=== PATIENT | female | born 1950 | race Caucasian/White ===

== ENCOUNTER 2016-05-29 10:18 | Inpatient (IN) | payer MEDICARE, OTHER ==
[~2016-05-29 10:18] MED LIST: ACCUPRIL40 M1 PO; ACCUPRIL40 MG; ARIPIPRAZOLE5 MG PO; ARTIFICIAL TEAR1510 EACH EYE; ASPIRIN81 M1 PO; ATORVASTATIN CA80 M1 PO; CELEXA20 M2 PO; CELEXA40 M2 PO; CERTAVITE SR-A1 EACH PO; CLOPIDOGREL75 M1 PO; COLACE100 M1 PO; COUMADIN1 M1 PO; COUMADIN5 M2 PO; DIAZEPAM10 M2 PO; DULOXETINE HCL60 M1 PO; GENTEAL EACH EYE; HUMALOG100 U/ML; HUMALOG100 UNIT/2 SQ; HUMALOG100 UNITS/ SC; HUMULIN 70/30 V10 ML; HYDROCHLOROTHIA25 M1 PO; IRON325 M3 PO; ISOSORBIDE MONO30 M4 PO; KEFLEX500 MG PO; LANTUS100 UNITS/ SC; LIPITOR40 M1 PO; LIPITOR80 M1 PO; LISINOPRIL2.5 M1 PO; LOPRESSOR50 M1 PO; METHIMAZOLE5 M1 PO; METOPROLOL SUCC25 M1 PO; METOPROLOL TART25 M1 PO; NORCO 5-325 TA1 EACH PO; NORVASC10 M2 PO; NORVASC5 MG; OMEPRAZOLE20 M3 PO; PAIN RELIEVER500 M6 PO; PLAVIX75 M1 PO; PRAVACHOL40 M1 PO; PRAVACHOL40 MG; RANEXA500 M1 PO; REQUIP2 M1 PO; REQUIP2 MG; SENNA8.6 M2 PO; SPIRIVA18 MC1 IH; SUCRALFATE1 GM/10 ML PO; SYSTANE ULTRA 010 M1 EACH EYE; TAPAZOLE5 M1 PO; ULTRAM50 M1 PO; VOTRIENT200 M1 PO
[2016-05-29 10:55] LABS: BASO % 0.4 % (0-2); EOS % 0.4 % (0-7); HCT-HEMATOCRIT 40.5 % (34.0-49.0); HGB-HEMOGLOBIN 13.2 gm/dl (12.0-15.5); LYMPH % 9.2 % (20-45); LYMPH ABSOLUTE COUNT 0.8 tho/cmm (0.8-4.5); MCHC MEAN CORPUSCULAR HGB CONC 32.6 % (32.0-36.0); MCV (MEAN CELL VOLUME) 98.3 fl (82.0-96.0); MEAN PLATELET VOLUME 10.1 cmc (9.4-12.4); MONO % 9.8 % (0-12); MONOCYTE ABSOLUTE COUNT 0.8 tho/cmm (0.0-1.2); NEUTROPHIL ABSOLUTE COUNT 6.7 tho/cmm (1.6-8.0); NEUTROPHIL-AUTOMATED 6.7 tho/cmm (1.6-8.0); NEUTROPHILS % 80.2 % (40-80); PLATELET COUNT 220 tho/cmm (150-450); RED BLOOD COUNT 4.12 mil/cmm (4.00-5.20); RED CELL DISTRIBUTION WIDTH 12.1 % (12.4-16.4); WHITE BLOOD COUNT 8.3 tho/cmm (4.0-10.0)
[2016-05-29 11:01] LABS: INR 3.2 INR (0.9-1.1); PROTHROMBIN TIME 38.5 SECONDS (9.0-13.6)
[2016-05-29] MEDS ORDERED: LISINOPRIL20 M1 PO (11:03)
[2016-05-29 11:06] LABS: ANION GAP 14 mmol/L (0-20); BLOOD UREA NITROGEN 23 mg/dl (6-24); CALCIUM 9.5 mg/dl (8.5-10.5); CARBON DIOXIDE-VENOUS 25 mmol/L (22-32); CHLORIDE 103 mmol/l (96-110); GLUCOSE 264 mg/dL (70-110); POTASSIUM 3.9 mmol/L (3.7-5.1); SODIUM 138 mmol/L (135-145); eGFR VALUE FOR BLACK 50 mL/Min
[2016-05-29] MEDS ORDERED: COUMADIN2.5 M1 PO (12:34)
[2016-05-29] MEDS ORDERED: ACCUPRIL40 M1 PO (12:58)
[2016-05-29] MEDS ORDERED: OXYCODONE HCL5 M1 PO (13:02)
[2016-05-29] MEDS ORDERED: CALCIUM + VITA1 EAC4 PO (13:03)
[2016-05-30 01:02] LABS: URINE BILIRUBIN NEGATIVE (NEG); URINE BLOOD LARGE (NEG); URINE GLUCOSE (UA) LARGE (NEG); URINE KETONE NEGATIVE (NEG); URINE LEUKOCYTE ESTERASE NEGATIVE (NEG); URINE NITRITE NEGATIVE (NEG); URINE PH 6.5 (5.0-8.0); URINE PROTEIN MODERATE (NEG)
[2016-05-30 01:04] LABS: URINE APPEARANCE CLEAR; URINE COLOR YELLOW
[2016-05-30 01:12] LABS: URINE EPITHELIAL CELLS 0 /[HPF] (0-10); URINE RBC 30-50 /[HPF] (0-5)
[2016-05-30 10:26] LABS: INR 4.3 INR (0.9-1.1); PROTHROMBIN TIME 52.3 SECONDS (9.0-13.6)
[2016-05-31 06:15] LABS: BASO % 0.1 % (0-2); EOS % 0.1 % (0-7); HCT-HEMATOCRIT 37.2 % (34.0-49.0); HGB-HEMOGLOBIN 12.3 gm/dl (12.0-15.5); IMMATURE GRANULOCYTES ABSOLUTE 0.02 tho/cmm (0-0.03); IMMATURE GRANULOCYTES PERCENT 0.3 % (0-0.3); LYMPH % 15.3 % (20-45); LYMPH ABSOLUTE COUNT 1.1 tho/cmm (0.8-4.5); MCH (MEAN CORPUSCULAR HGB) 32.4 pg (28.0-32.0); MCHC MEAN CORPUSCULAR HGB CONC 33.1 % (32.0-36.0); MCV (MEAN CELL VOLUME) 97.9 fl (82.0-96.0); MEAN PLATELET VOLUME 10.1 cmc (9.4-12.4); MONO % 15.1 % (0-12); MONOCYTE ABSOLUTE COUNT 1.1 tho/cmm (0.0-1.2); NEUTROPHIL ABSOLUTE COUNT 5.1 tho/cmm (1.6-8.0); NEUTROPHIL-AUTOMATED 5.1 tho/cmm (1.6-8.0); NEUTROPHILS % 69.1 % (40-80); PLATELET COUNT 179 tho/cmm (150-450); RED CELL DISTRIBUTION WIDTH 12.6 % (12.4-16.4); WHITE BLOOD COUNT 7.4 tho/cmm (4.0-10.0)
[2016-05-31 06:19] LABS: INR 3.4 INR (0.9-1.1); PROTHROMBIN TIME 41.1 SECONDS (9.0-13.6)
[2016-05-31 06:26] LABS: ANION GAP 11 mmol/L (0-20); BLOOD UREA NITROGEN 17 mg/dl (6-24); CALCIUM 8.3 mg/dl (8.5-10.5); CARBON DIOXIDE-VENOUS 27 mmol/L (22-32); CHLORIDE 104 mmol/l (96-110); CREATININE 0.94 mg/dl (0.50-1.10); POTASSIUM 4.1 mmol/L (3.7-5.1); SODIUM 138 mmol/L (135-145); eGFR VALUE FOR BLACK 73 mL/Min
[2016-05-31 06:59] LABS: GLUCOSE 64 mg/dL (70-110)
[2016-06-01 05:24] LABS: INR 2.1 INR (0.9-1.1); PROTHROMBIN TIME 24.9 SECONDS (9.0-13.6)
[2016-06-02 05:25] LABS: INR 1.7 INR (0.9-1.1)
[2016-06-03 05:16] LABS: INR 1.6 INR (0.9-1.1); PROTHROMBIN TIME 19.1 SECONDS (9.0-13.6)
[2016-06-04 04:51] LABS: INR 1.9 INR (0.9-1.1); PROTHROMBIN TIME 22.2 SECONDS (9.0-13.6)
[2016-06-05 10:24] LABS: INR 2.4 INR (0.9-1.1); PROTHROMBIN TIME 28.3 SECONDS (9.0-13.6)
[2016-06-06 06:22] LABS: INR 2.6 INR (0.9-1.1); PROTHROMBIN TIME 31.3 SECONDS (9.0-13.6)
[2016-06-06] MEDS ORDERED: COUMADIN5 M2 PO (09:24)
[2016-06-06] MEDS ORDERED: NORCO 5-325 TA1 EACH PO (09:26)
[2016-06-06] MEDS ORDERED: NOVOLOG100 UNITS/ (09:28)
[2016-06-06] MEDS ORDERED: LEVEMIR100 UNITS/ SC (09:29)
[2016-06-06] MEDS ORDERED: SENOKOT-S TABL1 EACH PO (09:29)
== END 2016-06-06 15:50 | DRG 543 ==
LOC: EDMED 10:18 → EMR2 13:38 → 5EB 14:06
PROVIDERS: Emergency Medicine; Internal Medicine; ADMIT Internal Medicine Medical Oncology
DX: M84.552A Pathological fracture in neoplastic disease, left femur, initial encounter for fracture (principal); C79.51 Secondary malignant neoplasm of bone; J44.9 Chronic obstructive pulmonary disease, unspecified; C34.90 Malignant neoplasm of unspecified part of unspecified bronchus or lung; Z85.528 Personal history of other malignant neoplasm of kidney; Z90.5 Acquired absence of kidney; I73.9 Peripheral vascular disease, unspecified; W18.2XXA Fall in (into) shower or empty bathtub, initial encounter; E10.319 Type 1 diabetes mellitus with unspecified diabetic retinopathy without macular edema; Z79.01 Long term (current) use of anticoagulants; E78.5 Hyperlipidemia, unspecified; I10 Essential (primary) hypertension; N28.9 Disorder of kidney and ureter, unspecified; I25.10 Atherosclerotic heart disease of native coronary artery without angina pectoris; F32.9 Major depressive disorder, single episode, unspecified
CPT/HCPCS: G8987-GO-CK; G8988-GO-CJ; G8989-GO-CK; J1170; J1630; J1815; J2405; J7030

== ENCOUNTER 2016-08-18 06:04 | Inpatient (IN) | payer MEDICARE, OTHER ==
[~2016-08-18 06:04] MED LIST changes: +CALCIUM + VITA1 EAC4 PO; +COUMADIN2.5 M1 PO; +LEVEMIR100 UNITS/ SC; +LISINOPRIL20 M1 PO; +NOVOLOG100 UNITS/; +OXYCODONE HCL5 M1 PO; +SENOKOT-S TABL1 EACH PO
[2016-08-18 06:39] LABS: HCT-HEMATOCRIT 37.8 % (34.0-49.0); HGB-HEMOGLOBIN 12.4 gm/dl (12.0-15.5); MCH (MEAN CORPUSCULAR HGB) 30.7 pg (28.0-32.0); MCHC MEAN CORPUSCULAR HGB CONC 32.8 % (32.0-36.0); MCV (MEAN CELL VOLUME) 93.6 fl (82.0-96.0); MEAN PLATELET VOLUME 9.5 cmc (9.4-12.4); NEUTROPHIL-AUTOMATED 13.2 tho/cmm (1.6-8.0); PLATELET COUNT 129 tho/cmm (150-450); RED BLOOD COUNT 4.04 mil/cmm (4.00-5.20); RED CELL DISTRIBUTION WIDTH 16.1 % (12.4-16.4); WHITE BLOOD COUNT 14.3 tho/cmm (4.0-10.0)
[2016-08-18 06:46] LABS: INR 1.8 INR (0.9-1.1); PROTHROMBIN TIME 20.9 SECONDS (9.0-13.6)
[2016-08-18 06:57] LABS: ALB/GLOB RATIO 0.6 (0.8-2.0); ALBUMIN 2.2 g/dl (3.5-5.0); ALKALINE PHOSPHATASE 75 U/L (33-138); ALT/SGPT 109 U/L (12-78); ANION GAP 13 mmol/L (0-20); AST/SGOT 80 U/L (10-40); BILIRUBIN,TOTAL 0.4 mg/dl (0-1.5); BLOOD UREA NITROGEN 24 mg/dl (6-24); CALCIUM 8.4 mg/dl (8.5-10.5); CARBON DIOXIDE-VENOUS 25 mmol/L (22-32); CHLORIDE 110 mmol/l (96-110); CREATININE 0.73 mg/dl (0.50-1.10); SODIUM 144 mmol/L (135-145); eGFR VALUE FOR BLACK >90 mL/Min
[2016-08-18 07:05] LABS: GLUCOSE 51 mg/dL (70-110)
[2016-08-18 07:14] LABS: BAND % 31 % (0-20); BAND ABSOLUTE COUNT 4.4 tho/cmm (0-2.0)
[2016-08-18] MEDS ORDERED: DEXAMETHASONE4 M1 PO ×2 (07:57→09:57)
[2016-08-18] MEDS ORDERED: HUMALOG KW200 UNIT/1 SC (07:58)
[2016-08-18] MEDS ORDERED: LANTUS100 UNITS/ SC (07:59)
[2016-08-18] MEDS ORDERED: ROPINIROLE HCL2 M2 PO (08:00)
[2016-08-18] MEDS ORDERED: REQUIP2 M1 PO (08:01)
[2016-08-18 08:45] LABS: URINE APPEARANCE CLEAR; URINE BILIRUBIN NEGATIVE (NEG); URINE BLOOD MODERATE (NEG); URINE COLOR YELLOW; URINE GLUCOSE (UA) NEGATIVE (NEG); URINE KETONE NEGATIVE (NEG); URINE LEUKOCYTE ESTERASE NEGATIVE (NEG); URINE NITRITE NEGATIVE (NEG); URINE PROTEIN LARGE (NEG)
[2016-08-18 08:48] LABS: URINE AMORPHOUS 1+; URINE BACTERIA 1+; URINE RBC RARE /[HPF] (0-5); URINE WBC 0 /[HPF] (0-5)
[2016-08-18 09:29] LABS: PROCALCITONIN 7.75 ng/ml (0.05-0.09)
[2016-08-18] MEDS ORDERED: DIFLUCAN200 M1 PO (10:06)
[2016-08-18] MEDS ORDERED: NYSTATIN100000 UNI PO (10:07)
[2016-08-18] MEDS ORDERED: COUMADIN1 M1 PO (10:12)
[2016-08-18] MEDS ORDERED: ACCUPRIL40 M1 PO (10:48)
[2016-08-18 10:50] LABS: ABG CO2 ARTERIAL 26 mmol/L (21-27); ARTERIAL BLD GAS O2 SATURATION 94 % (95-98); ARTERIAL BLOOD GAS PCO2 34 mmHg (32-45); ARTERIAL PO2 60 mmHg (70-100); BICARBONATE 25 mmol/L (21-28); BLOOD GAS BASE EXCESS 2 mM/L (-/+3); PH 7.48 Units (7.35-7.45)
[2016-08-18] MEDS ORDERED: PRINIVIL20 M1 PO (11:44)
[2016-08-19 05:27] LABS: BASO % 0.1 % (0-2); EOS % 0.2 % (0-7); HCT-HEMATOCRIT 34.8 % (34.0-49.0); HGB-HEMOGLOBIN 11.4 gm/dl (12.0-15.5); IMMATURE GRANULOCYTES ABSOLUTE 0.06 tho/cmm (0-0.03); IMMATURE GRANULOCYTES PERCENT 0.5 % (0-0.3); LYMPH % 5.9 % (20-45); LYMPH ABSOLUTE COUNT 0.8 tho/cmm (0.8-4.5); MCH (MEAN CORPUSCULAR HGB) 30.4 pg (28.0-32.0); MCHC MEAN CORPUSCULAR HGB CONC 32.8 % (32.0-36.0); MCV (MEAN CELL VOLUME) 92.8 fl (82.0-96.0); MEAN PLATELET VOLUME 9.7 cmc (9.4-12.4); MONOCYTE ABSOLUTE COUNT 0.4 tho/cmm (0.0-1.2); NEUTROPHIL ABSOLUTE COUNT 11.6 tho/cmm (1.6-8.0); NEUTROPHIL-AUTOMATED 11.6 tho/cmm (1.6-8.0); NEUTROPHILS % 90.3 % (40-80); PLATELET COUNT 131 tho/cmm (150-450); RED BLOOD COUNT 3.75 mil/cmm (4.00-5.20); RED CELL DISTRIBUTION WIDTH 16.5 % (12.4-16.4); WHITE BLOOD COUNT 12.8 tho/cmm (4.0-10.0)
[2016-08-19 05:29] LABS: INR 1.9 INR (0.9-1.1); PROTHROMBIN TIME 22.4 SECONDS (9.0-13.6)
[2016-08-19 05:39] LABS: ALB/GLOB RATIO 0.5 (0.8-2.0); ALBUMIN 1.9 g/dl (3.5-5.0); ALKALINE PHOSPHATASE 68 U/L (33-138); ALT/SGPT 74 U/L (12-78); ANION GAP 12 mmol/L (0-20); AST/SGOT 49 U/L (10-40); BILIRUBIN,DIRECT 0.2 mg/dl (0.0-0.3); BILIRUBIN,INDIRECT 0.7 mg/dL (0.0-1.0); BLOOD UREA NITROGEN 20 mg/dl (6-24); CALCIUM 8.2 mg/dl (8.5-10.5); CARBON DIOXIDE-VENOUS 25 mmol/L (22-32); CHLORIDE 108 mmol/l (96-110); CREATININE 0.93 mg/dl (0.50-1.10); POTASSIUM 3.8 mmol/L (3.7-5.1); SODIUM 141 mmol/L (135-145); eGFR VALUE FOR BLACK 74 mL/Min
[2016-08-19 05:44] LABS: BILIRUBIN,TOTAL 0.9 mg/dl (0-1.5); GLUCOSE 134 mg/dL (70-110)
[2016-08-20 04:24] LABS: INR 2.3 INR (0.9-1.1); PROTHROMBIN TIME 27.4 SECONDS (9.0-13.6)
[2016-08-21 05:05] LABS: INR 3.8 INR (0.9-1.1); PROTHROMBIN TIME 45.5 SECONDS (9.0-13.6)
[2016-08-22 04:38] LABS: INR 3.3 INR (0.9-1.1); PROTHROMBIN TIME 40.3 SECONDS (9.0-13.6)
[2016-08-22] MEDS ORDERED: AMOXICILLIN875 M1 PO (13:05)
[2016-08-22] MEDS ORDERED: NYSTATIN15 G1 TP (13:06)
[2016-08-22] MEDS ORDERED: TYLENOL325 M2 PO (13:11)
[2016-08-22] MEDS ORDERED: CULTURELLE1 EAC1 PO (13:12)
[2016-08-22] MEDS ORDERED: COLACE100 M1 PO (13:12)
[2016-08-22] MEDS ORDERED: POLYETHYLENE G255 G1 PO (13:13)
[2016-08-22] MEDS ORDERED: GLUCAGON HCL1 MG SC (13:14)
[2016-08-22] MEDS ORDERED: NOVOLOG100 UNITS/ SC (13:40)
[2016-08-22] MEDS ORDERED: LEVEMIR100 UNITS/ SC (13:41)
== END 2016-08-22 15:35 | DRG 871 ==
LOC: EDMED 06:04 → EMR2 09:31 → CCU 12:26 → PCUB 08-19 21:15
PROVIDERS: Emergency Medicine; ADMIT Hospitalist
PROC: 02HV33Z Insertion of Infusion Device into Superior Vena Cava, Percutaneous Approach (ICD-10-PCS; principal; 2016-08-18)
DX: A41.9 Sepsis, unspecified organism (principal); J18.9 Pneumonia, unspecified organism; G93.40 Encephalopathy, unspecified; E87.2 Acidosis; D68.9 Coagulation defect, unspecified; E46 Unspecified protein-calorie malnutrition; C79.31 Secondary malignant neoplasm of brain; J44.0 Chronic obstructive pulmonary disease with (acute) lower respiratory infection; B37.0 Candidal stomatitis; M84.58XA Pathological fracture in neoplastic disease, other specified site, initial encounter for fracture; C79.51 Secondary malignant neoplasm of bone; N39.0 Urinary tract infection, site not specified; C64.9 Malignant neoplasm of unspecified kidney, except renal pelvis; R65.20 Severe sepsis without septic shock; E11.649 Type 2 diabetes mellitus with hypoglycemia without coma; Z79.4 Long term (current) use of insulin; T45.1X5A Adverse effect of antineoplastic and immunosuppressive drugs, initial encounter; F32.9 Major depressive disorder, single episode, unspecified; K12.0 Recurrent oral aphthae; T38.0X5A Adverse effect of glucocorticoids and synthetic analogues, initial encounter; Z92.3 Personal history of irradiation; Z66 Do not resuscitate; I25.10 Atherosclerotic heart disease of native coronary artery without angina pectoris; E78.5 Hyperlipidemia, unspecified; I10 Essential (primary) hypertension; Z85.118 Personal history of other malignant neoplasm of bronchus and lung; Z95.820 Peripheral vascular angioplasty status with implants and grafts; Z79.01 Long term (current) use of anticoagulants; E05.90 Thyrotoxicosis, unspecified without thyrotoxic crisis or storm; L30.4 Erythema intertrigo; R60.0 Localized edema; R74.0 Nonspecific elevation of levels of transaminase and lactic acid dehydrogenase [LDH]; E11.319 Type 2 diabetes mellitus with unspecified diabetic retinopathy without macular edema; E11.51 Type 2 diabetes mellitus with diabetic peripheral angiopathy without gangrene; D69.6 Thrombocytopenia, unspecified; R23.3 Spontaneous ecchymoses; Z99.3 Dependence on wheelchair; R79.89 Other specified abnormal findings of blood chemistry; Z68.29 Body mass index [BMI] 29.0-29.9, adult; S80.929A Unspecified superficial injury of unspecified lower leg, initial encounter
CPT/HCPCS: C1751; C8929; J0360; J1650; J1815; J1956; J2543; J3370; J7030

== ENCOUNTER 2016-08-24 10:17 | Inpatient (IN) | payer MEDICARE, OTHER ==
[~2016-08-24 10:17] MED LIST changes: +AMOXICILLIN875 M1 PO; +CULTURELLE1 EAC1 PO; +DEXAMETHASONE4 M1 PO; +DIFLUCAN200 M1 PO; +GLUCAGON HCL1 MG SC; +HUMALOG KW200 UNIT/1 SC; +NOVOLOG100 UNITS/ SC; +NYSTATIN100000 UNI PO; +NYSTATIN15 G1 TP; +POLYETHYLENE G255 G1 PO; +PRINIVIL20 M1 PO; +ROPINIROLE HCL2 M2 PO; +TYLENOL325 M2 PO
[2016-08-24 11:04] LABS: BASO % 0.3 % (0-2); EOS % 0.3 % (0-7); HCT-HEMATOCRIT 39.7 % (34.0-49.0); HGB-HEMOGLOBIN 13.1 gm/dl (12.0-15.5); IMMATURE GRANULOCYTES ABSOLUTE 0.11 tho/cmm (0-0.03); IMMATURE GRANULOCYTES PERCENT 1.5 % (0-0.3); LYMPH % 6.7 % (20-45); LYMPH ABSOLUTE COUNT 0.5 tho/cmm (0.8-4.5); MCH (MEAN CORPUSCULAR HGB) 30.3 pg (28.0-32.0); MCV (MEAN CELL VOLUME) 91.9 fl (82.0-96.0); MEAN PLATELET VOLUME 9.9 cmc (9.4-12.4); MONO % 5.2 % (0-12); MONOCYTE ABSOLUTE COUNT 0.4 tho/cmm (0.0-1.2); NEUTROPHIL ABSOLUTE COUNT 6.3 tho/cmm (1.6-8.0); NEUTROPHIL-AUTOMATED 6.3 tho/cmm (1.6-8.0); PLATELET COUNT 209 tho/cmm (150-450); RED BLOOD COUNT 4.32 mil/cmm (4.00-5.20); RED CELL DISTRIBUTION WIDTH 15.2 % (12.4-16.4); WHITE BLOOD COUNT 7.3 tho/cmm (4.0-10.0)
[2016-08-24 11:10] LABS: KETONE-BETA (WHOLE BLOOD) 0.2 mmol/L (0.0-0.6)
[2016-08-24 11:26] LABS: ALB/GLOB RATIO 0.5 (0.8-2.0); ALBUMIN 2.4 g/dl (3.5-5.0); ALKALINE PHOSPHATASE 127 U/L (33-138); ALT/SGPT 180 U/L (12-78); BILIRUBIN,TOTAL 0.5 mg/dl (0-1.5); BLOOD UREA NITROGEN 29 mg/dl (6-24); CALCIUM 9.5 mg/dl (8.5-10.5); CARBON DIOXIDE-VENOUS 27 mmol/L (22-32); CHLORIDE 107 mmol/l (96-110); CREATININE 1.04 mg/dl (0.50-1.10); GLUCOSE 424 mg/dL (70-110); SODIUM 140 mmol/L (135-145); eGFR VALUE FOR BLACK 65 mL/Min
[2016-08-24 11:28] LABS: URINE BILIRUBIN NEGATIVE (NEG); URINE BLOOD MODERATE (NEG); URINE GLUCOSE (UA) LARGE (NEG); URINE KETONE NEGATIVE (NEG); URINE LEUKOCYTE ESTERASE NEGATIVE (NEG); URINE NITRITE NEGATIVE (NEG); URINE PROTEIN MODERATE (NEG); URINE SPECIFIC GRAVITY 1.015 (1.003-1.030)
[2016-08-24 11:33] LABS: URINE APPEARANCE CLEAR; URINE COLOR PALE YELLOW
[2016-08-24 11:35] LABS: ANION GAP 11 mmol/L (0-20); AST/SGOT 87 U/L (10-40); POTASSIUM 4.6 mmol/L (3.7-5.1)
[2016-08-24 11:44] LABS: URINE WBC RARE /[HPF] (0-5)
[2016-08-24 12:17] LABS: PROCALCITONIN 0.77 ng/ml (0.05-0.09)
[2016-08-24] MEDS ORDERED: TAPAZOLE5 M1 PO (12:56)
[2016-08-24 13:25] LABS: INR 1.1 INR (0.9-1.1); PROTHROMBIN TIME 12.9 SECONDS (9.0-13.6)
[2016-08-24 13:26] LABS: PARTIAL THROMBOPLASTIN TIME 26 SECONDS (22-36)
[2016-08-25 05:08] LABS: INR 1.4 INR (0.9-1.1); PROTHROMBIN TIME 16.8 SECONDS (9.0-13.6)
[2016-08-25 05:13] LABS: BASO % 0.2 % (0-2); EOS % 0.4 % (0-7); HCT-HEMATOCRIT 35.9 % (34.0-49.0); HGB-HEMOGLOBIN 11.3 gm/dl (12.0-15.5); LYMPH % 8.6 % (20-45); LYMPH ABSOLUTE COUNT 0.7 tho/cmm (0.8-4.5); MCH (MEAN CORPUSCULAR HGB) 29.9 pg (28.0-32.0); MCHC MEAN CORPUSCULAR HGB CONC 31.5 % (32.0-36.0); MEAN PLATELET VOLUME 9.4 cmc (9.4-12.4); MONO % 8.3 % (0-12); MONOCYTE ABSOLUTE COUNT 0.7 tho/cmm (0.0-1.2); NEUTROPHILS % 82.5 % (40-80); PLATELET COUNT 238 tho/cmm (150-450); RED BLOOD COUNT 3.78 mil/cmm (4.00-5.20); RED CELL DISTRIBUTION WIDTH 15.8 % (12.4-16.4); WHITE BLOOD COUNT 8.5 tho/cmm (4.0-10.0)
[2016-08-25 05:23] LABS: ALB/GLOB RATIO 0.5 (0.8-2.0); ALBUMIN 2.2 g/dl (3.5-5.0); ALKALINE PHOSPHATASE 101 U/L (33-138); ALT/SGPT 149 U/L (12-78); ANION GAP 16 mmol/L (0-20); AST/SGOT 63 U/L (10-40); BILIRUBIN,TOTAL 0.5 mg/dl (0-1.5); BLOOD UREA NITROGEN 28 mg/dl (6-24); CALCIUM 9.3 mg/dl (8.5-10.5); CARBON DIOXIDE-VENOUS 22 mmol/L (22-32); CHLORIDE 107 mmol/l (96-110); GLUCOSE 408 mg/dL (70-110); POTASSIUM 4.3 mmol/L (3.7-5.1); SODIUM 141 mmol/L (135-145); eGFR VALUE FOR BLACK 68 mL/Min
[2016-08-26 05:48] LABS: BASO % 0.2 % (0-2); EOS % 0.2 % (0-7); HGB-HEMOGLOBIN 10.9 gm/dl (12.0-15.5); IMMATURE GRANULOCYTES ABSOLUTE 0.11 tho/cmm (0-0.03); IMMATURE GRANULOCYTES PERCENT 1.3 % (0-0.3); LYMPH ABSOLUTE COUNT 0.7 tho/cmm (0.8-4.5); MCH (MEAN CORPUSCULAR HGB) 30.2 pg (28.0-32.0); MCHC MEAN CORPUSCULAR HGB CONC 32.1 % (32.0-36.0); MCV (MEAN CELL VOLUME) 94.2 fl (82.0-96.0); MEAN PLATELET VOLUME 9.5 cmc (9.4-12.4); MONOCYTE ABSOLUTE COUNT 0.7 tho/cmm (0.0-1.2); NEUTROPHIL ABSOLUTE COUNT 7.2 tho/cmm (1.6-8.0); NEUTROPHIL-AUTOMATED 7.2 tho/cmm (1.6-8.0); NEUTROPHILS % 82.3 % (40-80); PLATELET COUNT 238 tho/cmm (150-450); RED BLOOD COUNT 3.61 mil/cmm (4.00-5.20); WHITE BLOOD COUNT 8.8 tho/cmm (4.0-10.0)
[2016-08-26 05:57] LABS: INR 1.7 INR (0.9-1.1); PROTHROMBIN TIME 20.5 SECONDS (9.0-13.6)
[2016-08-26 06:05] LABS: ANION GAP 18 mmol/L (0-20); BLOOD UREA NITROGEN 33 mg/dl (6-24); CALCIUM 9.2 mg/dl (8.5-10.5); CARBON DIOXIDE-VENOUS 22 mmol/L (22-32); CHLORIDE 103 mmol/l (96-110); CREATININE 1.02 mg/dl (0.50-1.10); POTASSIUM 4.2 mmol/L (3.7-5.1); SODIUM 139 mmol/L (135-145); eGFR VALUE FOR BLACK 66 mL/Min
[2016-08-26 06:21] LABS: GLUCOSE 542 mg/dL (70-110)
[2016-08-27 05:44] LABS: INR 1.6 INR (0.9-1.1); PROTHROMBIN TIME 19.3 SECONDS (9.0-13.6)
[2016-08-28 04:32] LABS: INR 1.2 INR (0.9-1.1)
[2016-08-28 04:57] LABS: PROTHROMBIN TIME 14.2 SECONDS (9.0-13.6)
[2016-08-29 06:02] LABS: BASO % 0.4 % (0-2); EOS % 0.4 % (0-7); HCT-HEMATOCRIT 34.6 % (34.0-49.0); HGB-HEMOGLOBIN 11.6 gm/dl (12.0-15.5); IMMATURE GRANULOCYTES ABSOLUTE 0.09 tho/cmm (0-0.03); IMMATURE GRANULOCYTES PERCENT 1.1 % (0-0.3); LYMPH % 9.1 % (20-45); LYMPH ABSOLUTE COUNT 0.7 tho/cmm (0.8-4.5); MCH (MEAN CORPUSCULAR HGB) 30.2 pg (28.0-32.0); MCHC MEAN CORPUSCULAR HGB CONC 33.5 % (32.0-36.0); MCV (MEAN CELL VOLUME) 90.1 fl (82.0-96.0); MEAN PLATELET VOLUME 9.5 cmc (9.4-12.4); MONO % 6.7 % (0-12); MONOCYTE ABSOLUTE COUNT 0.5 tho/cmm (0.0-1.2); NEUTROPHIL ABSOLUTE COUNT 6.5 tho/cmm (1.6-8.0); NEUTROPHIL-AUTOMATED 6.5 tho/cmm (1.6-8.0); NEUTROPHILS % 82.3 % (40-80); PLATELET COUNT 300 tho/cmm (150-450); RED BLOOD COUNT 3.84 mil/cmm (4.00-5.20); WHITE BLOOD COUNT 7.9 tho/cmm (4.0-10.0)
[2016-08-29 06:06] LABS: INR 0.9 INR (0.9-1.1); PROTHROMBIN TIME 10.6 SECONDS (9.0-13.6)
[2016-08-29 11:01] LABS: CSF APPEARANCE CLEAR (CLEAR); CSF COLOR COLORLESS (COLORLESS); CSF RBC CT 1 cmm (0); CSF TUBE NUMBER CSF TUBE 3; CSF WBC CT 2 cmm (0-10)
[2016-08-29 11:15] LABS: CSF GLUCOSE 169 mg/dl (40-75)
[2016-08-29 11:23] LABS: CSF LYMPHOCYTES 53 % (40-80); CSF MONOCYTES 40 % (15-45); CSF NEUTROPHILS 7 % (0-6)
[2016-08-29 12:07] LABS: ABG CO2 ARTERIAL 28 mmol/L (21-27); ARTERIAL BLD GAS O2 SATURATION 95 % (95-98); ARTERIAL BLOOD GAS PCO2 39 mmHg (32-45); ARTERIAL PO2 74 mmHg (70-100); BICARBONATE 27 mmol/L (21-28); BLOOD GAS BASE EXCESS 4 mM/L (-/+3); PH 7.46 Units (7.35-7.45)
[2016-08-29] MEDS ORDERED: NOVOLOG100 UNITS/ SC (15:20)
[2016-08-29] MEDS ORDERED: NYSTATIN100000 UNI PO (15:23)
== END 2016-08-29 16:00 | DRG 92 ==
LOC: EDMED 10:17 → EMR2 13:39 → 5WE 15:02 → 5WF 17:58
PROVIDERS: Emergency Medicine; Radiology Diagnostic Radiology; ADMIT Internal Medicine
PROC: 02HV33Z Insertion of Infusion Device into Superior Vena Cava, Percutaneous Approach (ICD-10-PCS; 2016-08-24)
PROC: 009U3ZX Drainage of Spinal Canal, Percutaneous Approach, Diagnostic (ICD-10-PCS; principal; 2016-08-29)
DX: G92 Toxic encephalopathy (principal); D84.9 Immunodeficiency, unspecified; C79.31 Secondary malignant neoplasm of brain; C79.51 Secondary malignant neoplasm of bone; J44.0 Chronic obstructive pulmonary disease with (acute) lower respiratory infection; I48.0 Paroxysmal atrial fibrillation; Z92.3 Personal history of irradiation; Z85.528 Personal history of other malignant neoplasm of kidney; Z90.5 Acquired absence of kidney; Z85.118 Personal history of other malignant neoplasm of bronchus and lung; Z90.2 Acquired absence of lung [part of]; Z66 Do not resuscitate; Z51.5 Encounter for palliative care; E11.65 Type 2 diabetes mellitus with hyperglycemia; Z79.4 Long term (current) use of insulin; I25.10 Atherosclerotic heart disease of native coronary artery without angina pectoris; I10 Essential (primary) hypertension; E78.5 Hyperlipidemia, unspecified; F32.9 Major depressive disorder, single episode, unspecified; I73.9 Peripheral vascular disease, unspecified; Z88.2 Allergy status to sulfonamides; Z88.5 Allergy status to narcotic agent; Z87.891 Personal history of nicotine dependence
CPT/HCPCS: A9577; C1751; J0133; J0360; J1815; J7030; P9612